=== PATIENT | male | born 1970 | race Caucasian/White ===

== ENCOUNTER 2020-11-06 12:23 | Outpatient (CLI) | payer BC, SELFPAY ==
--- NOTE | 2020-11-06 12:37 | US_ITS ---
WS: [id number] RENAL ULTRASOUND URINARY BLADDER ULTRASOUND HISTORY: HEMATURIA COMPARISON: None available. TECHNIQUE: 2-D and color Doppler imaging of the kidney submitted. Right kidney: 12.4 cm x 5.3 cm x 3.9 cm. Normal echogenicity with no hydronephrosis or mass. Left kidney: 12.0 cm x 4.9 cm x 5.0 cm. Normal echogenicity with no hydronephrosis or mass. Aorta: Normal. Urinary Bladder: Normal distention. Normal bilateral ureteral jets. No filling defects. No wall thick ening. No stones in the bladder. 400 mL of urine distends the bladder. There is minimal post void res idual of 34 mL. Mild enlargement of the prostate gland. No encroachment into the bladder. US/US renal BI with PV bladder IMPRESSION: 1. Normal renal ultrasound. No obstruction. 2. No significant post void residual. 3. No bladder mass identified.
== END 2020-11-06 12:24 | disposition home or self-care (01) ==
LOC: RAD 12:33
PROVIDERS: PCP Family Medicine; Visit Provider Family Medicine
DX: R31.9 Hematuria, unspecified (principal)
CPT/HCPCS: 76770; 76857

== ENCOUNTER → 2024-11-07 08:28 | Outpatient (BNVA) | payer OTHER, SELFPAY | PROVIDERS: PCP Family Medicine; Visit Provider Family Medicine | DX: Z00.00 Encounter for general adult medical examination without abnormal findings (principal) | CPT/HCPCS: 80053; 80061; 84153; 88305 ==

== ENCOUNTER 2024-12-26 05:57 | Day surgery (SDC) | payer OTHER, SELFPAY ==
[2024-12-26 06:10] VITALS: BP 133/74; PULSE 68; RESP 18; TEMP 36.1; O2SAT 96; BMI 26.4
[2024-12-26] MEDS: sodium chloride 0.9% 500 ML 15 ML IV (06:20)
--- NOTE | 2024-12-26 06:46 | ANES.PREANE2 ---
Pre-Anesthetic Assessment Height/Weight: Height 1.91 m Weight 96.162 kg Temp Pulse Resp BP Pulse Ox O2 Del Method 97.0 F L 68 18 133/74 96 Room Air 12/26/24 06:10 12/26/24 06:10 12/26/24 06:10 12/26/24 06:10 12/26/24 06:10 12/26/24 06:10 Preop Diagnosis: Screening, GERD Operation Date: 12/26/24 07:00 Proposed Procedures p EGD 62708, 57149, G0121, Z12.11 K21.9(Not Applicable) - Vasyl Ibrahim DO s Colonoscopy(Not Applicable) - Vasyl Ibrahim DO Familial anesthetic complications: none Was Beta Lorie taken within 24 hours: N/A Was Clonidine taken within 24 hours: N/A Last intake: Intake Last Liquid Date 12/25/24 Last Liquid Time 21:00 Last Solid Date 12/24/24 Last Solid Time 19:30 Social Tobacco and No alcohol last chewed yesterday 1730 Airway Submandibular: within normal limits Cervical ROM: within normal limits Mallampati: Class II Dentition: full Pulmonary None reported CV/HEM None reported None reported Hepatic None reported GI Gastroesophageal Reflux Disease Metabolic None reported Musc/skel None reported Neuropsych None reported Anesthetic Plan ASA status: 1 Anesthesia: MAC Medications/Allergies Home Medications ?Medication ?Instructions ?Recorded ?Confirmed ?Last Taken ?Type pantoprazole 40 mg tablet,delayed 40 mg PO BID 6 weeks #84 tabs 12/13/24 12/24/24 12/25/24 Rx release (Protonix) Allergies Allergy/AdvReac Type Severity Reaction Status Date / Time No Known Allergies Allergy Verified 12/17/24 08:54 Current Medications Generic Name Dose Route Start Last Admin Trade Name Freq PRN Reason Stop Dose Admin Sodium Chloride 500 mls @ 15 mls/hr 12/26/24 06:03 12/26/24 06:20 Sodium Chloride 0.9% IV 12/27/24 06:02 15 mls/hr .Q24H PRN Administration COLONOSCOPY FLUIDS PFSH Anesthesia Social History Smoking and tobacco/nicotine status: unknown if used tobacco/nicotine Alcohol intake: current Alcohol intake frequency: holidays/special occasions only Substance/Drug Use: never Data Anesthesia Cardiac Studies: No Data to Display
--- NOTE | 2024-12-26 07:02 | W.PM.OPSUD ---
Surgery/Procedure H&P Update DATE OF PROCEDURE: December 26, 2024 DATE H&P PERFORMED: 12/13/24 H&P UPDATE INFORMATION: I have reviewed H&P completed within last 30 days, I have examined patient prior to procedure and No changes to prior documentation PREOP DIAGNOSIS: Screening, GERD PLANNED PROCEDURE: Operation Date: 12/26/24 07:00 Proposed Procedures p EGD 31500, 29739, G0121, Z12.11 K21.9(Not Applicable) - DO heather Gupta Colonoscopy(Not Applicable) - Vasyl Ibrahim DO
[2024-12-26 07:27] VITALS: BP 113/78; PULSE 72; RESP 16; TEMP 36.1; O2SAT 96
[2024-12-26 07:33] VITALS: BP 113/75; PULSE 76; RESP 16; O2SAT 93
[2024-12-26 07:46] VITALS: BP 121/78; PULSE 77; RESP 16; O2SAT 96
--- NOTE | 2024-12-26 08:00 | ANE.PACU2 ---
Inpatient post-anesthesia follow up: Airway intact: Yes Vital signs: Temperature 97.0 F Pulse Rate 77 Respiratory Rate 16 Blood Pressure 121/78 Pulse Oximetry 96 Oxygen Delivery Me thod Room Air Oxygen Flow Rate Fraction of Inspir ed Oxygen Hydration adequate: Yes Nausea and vomiting: No Pain level: 1 Mental status: Baseline
[2024-12-26 09:24] LABS: C.Diff PCR (Lab) NEGATIVE (Negative)
== END 2024-12-26 08:00 | disposition home or self-care (01) ==
PROVIDERS: PCP Family Medicine; Visit Provider Surgery
PROC: 0DJ08ZZ Inspection of Upper Intestinal Tract, Via Natural or Artificial Opening Endoscopic (ICD-10-PCS; principal; 2024-12-26 07:00)
PROC: 0DJD8ZZ Inspection of Lower Intestinal Tract, Via Natural or Artificial Opening Endoscopic (ICD-10-PCS; CPT 45378; 2024-12-26 07:00)
DX: Z12.11 Encounter for screening for malignant neoplasm of colon (principal); K52.9 Noninfective gastroenteritis and colitis, unspecified; K64.8 Other hemorrhoids; K21.9 Gastro-esophageal reflux disease without esophagitis; Z79.899 Other long term (current) drug therapy; K22.2 Esophageal obstruction
CPT/HCPCS: 43239; 45380; 82274; 83630; 87045; 87177; 87209; 87427; 87449; 87493; 88305; J2704; J7040

== ENCOUNTER → 2025-07-11 08:00 | Outpatient (BNVA) | payer OTHER, SELFPAY | PROVIDERS: PCP Family Medicine; Visit Provider Family Medicine | DX: M25.812 Other specified joint disorders, left shoulder (principal) | CPT/HCPCS: 88304 ==